=== PATIENT | male | born 1980 | race Caucasian/White ===

== ENCOUNTER 2024-07-25 06:58 | Day surgery (SDC) | payer BC ==
[2024-07-25] MEDS: Dextrose 5%-0.45% NaCl 1,000 ML IV SCH (07:37)
[2024-07-25] MEDS ORDERED: Midazolam 1 MG/ML 2 ML SDV IV ONE (07:43)
[2024-07-25] MEDS ORDERED: fentaNYL 100 MCG/2 ML SDV IV ONE (07:43)
[2024-07-25] MEDS ORDERED: Midazolam 1 MG/ML 2 ML SDV ONE (07:43)
[2024-07-25] MEDS ORDERED: fentaNYL 100 MCG/2 ML SDV ONE (07:43)
[2024-07-25] MEDS: fentaNYL 100 MCG/2 ML SDV IV ONE ×3 (07:57→08:04)
[2024-07-25] MEDS: Midazolam 1 MG/ML 2 ML SDV IV ONE ×6 (07:58→08:02)
== END 2024-07-25 09:20 | disposition home or self-care (01) ==
LOC: DL.ENDO 06:58
PROVIDERS: ATTEND Internal Medicine Gastroenterology
DX: Z12.11 Encounter for screening for malignant neoplasm of colon (principal)
CPT/HCPCS: J2250; J3010